=== PATIENT | female | born 1950 | race Caucasian/White ===

== ENCOUNTER 2016-10-18 14:49 | Outpatient (CLI) | payer MEDICARE, BC | END 2016-10-18 14:50 | disposition home or self-care (01) | DX: B18.2 Chronic viral hepatitis C (principal) ==

== ENCOUNTER 2017-01-22 12:50 | Outpatient (CLI) | payer MEDICARE, BC ==
[2017-01-22 18:15] LABS: BILIRUBIN,DIRECT < 0.1 mg/dL (0.1-0.5); BILIRUBIN,TOTAL 0.5 mg/dL (0.2-1.0); BUN - BLOOD UREA NITROGEN 17 mg/dL (6-20); CALCIUM 9.3 mg/dL (8.5-10.3); CARBON DIOXIDE - CO2 31 mmol/L (21-32); CHLORIDE 104 mmol/L (101-111); CREATININE 0.7 mg/dL (0.4-1.0); GFR - MDRD 84 (>89); GLUCOSE 131 mg/dL (70-100); POTASSIUM 3.7 mmol/L (3.5-5.0); SODIUM 141 mmol/L (135-145); TOTAL PROTEIN 6.7 g/dL (6.7-8.2)
== END 2017-01-22 12:51 | disposition home or self-care (01) ==
LOC: LAB.F 12:50
PROVIDERS: ATTEND Nurse Practitioner
DX: B18.2 Chronic viral hepatitis C (principal)
CPT/HCPCS: 36415; 80048; 80076; 87522

== ENCOUNTER 2024-03-13 11:05 | Outpatient (CLI) | payer MEDICARE ==
--- NOTE | 2024-03-14 16:16 | Ultrasound Report ---
PROCEDURE: Pelvic w/Transvaginal INDICATIONS: POST MENOPAUSAL BLEEDING TECHNIQUE: Real-time scanning was performed of the pelvic organs, with image documentation. Additional endovagi nal scanning was necessary due to incomplete visualization of the adnexal and endometrial structures by transabdominal scanning. COMPARISON: None. FINDINGS: Uterus: Uterus is anteverted and normal in size at 5.5 x 2.3 x 2.9 cm. The myometrium is homogeneou s. The endometrium measures 1 mm in combined thickness. Ovaries: Bilateral ovaries/adnexa were not visualized on this study. Other: No pathologic free abdominal or pelvic fluid. IMPRESSION: No acute sonographic abnormalities identified. Endometrial thickness of approximately 1 mm which may represent endometrial atrophy. Findings may be associated with postmenopausal vaginal bleeding. Reviewed by: Fabricio Damon MD on 03/14/2024 4:15 PM PDT Approved by: Fabricio Damon MD on 03/14/2024 4:15 PM PDT Station ID: [id number]
== END 2024-03-13 11:06 | disposition home or self-care (01) ==
LOC: DI 11:05
PROVIDERS: ATTEND Obstetrics & Gynecology
DX: N95.0 Postmenopausal bleeding (principal)